=== PATIENT | female | born 1995 | race Caucasian/White ===

== ENCOUNTER 2020-05-16 16:05 | Outpatient (REF) | payer OTHER, SELFPAY | END 2020-05-16 16:06 | disposition home or self-care (01) | LOC: HO.LAB 16:05 | PROVIDERS: Visit Provider Hospitalist | DX: B34.9 Viral infection, unspecified (principal); Z20.828 Contact with and (suspected) exposure to other viral communicable diseases | CPT/HCPCS: U0003 ==

== ENCOUNTER 2020-08-23 11:08 | Outpatient (REF) | payer OTHER, SELFPAY ==
[2020-08-23 13:55] LABS: MANUAL DIFF FLAG NO
[2020-08-23 14:19] LABS: Basophils Absolute Auto 0.1 X10*3/uL (0.0-0.2); Basophils Percent Auto 0.7 % (0-2); Eosinophils Absolute Auto 0.3 X10*3/uL (0.0-0.4); Eosinophils Percent Auto 2.9 % (0-4); Hematocrit 41.4 % (37-47); Hemoglobin 13.3 g/dl (12.0-16.0); Lymphocytes Absolute Auto 2.7 X10*3/uL (1.2-4.9); Lymphocytes Percent Auto 26.5 % (20-40); Mean Corpuscular HGB Conc 32.1 g/dl (31.0-35.0); Mean Corpuscular Hemoglobin 29.4 pg (27.0-33.0); Mean Corpuscular Volume 91.4 fL (80-98); Monocytes Absolute Auto 0.7 X10*3/uL (0.1-1.2); Monocytes Percent Auto 6.4 % (2-11); Neutrophils Absolute Auto 6.4 X10*3/uL (2.0-8.3); Neutrophils Percent Auto 62.5 % (45-73); Platelet Count 387 X10*3/uL (160-400); Red Blood Count 4.53 X10*6/uL (4.20-5.50); Red Cell Distribution Width 13.8 % (11.0-16.0); White Blood Count 10.2 X10*3/uL (4.8-10.8)
[2020-08-23 14:20] LABS: Alanine Aminotransferase 24 U/L (0-31); Anion Gap 15 (12-20); Aspartate Amino Transferase 25 U/L (5-31); Blood Urea Nitrogen 7 mg/dL (9-16); Calcium 9.2 mg/dL (8.4-10.2); Carbon Dioxide 28 mmol/L (22-29); Chloride 103 mmol/L (96-108); Cholesterol 166 mg/dL; Estimated Glomerular Filt Rate > 60; Glucose Fasting 79 mg/dL (60-99); HDL Cholesterol 43 mg/dL; LDL Cholesterol Calculated 86 mg/dl; Potassium 4.5 mmol/L (3.3-5.1); Sodium 141 mmol/L (135-145); Triglycerides 189 mg/dL
[2020-08-23 14:43] LABS: TSH reflex Free T4 1.53 uIU/mL (0.32-4.0); Vitamin D 25-OH Total 25.3 ng/mL (>30)
== END 2020-08-23 11:09 | disposition home or self-care (01) ==
LOC: HO.HMGCLDS 11:08
PROVIDERS: PCP Internal Medicine; Visit Provider Internal Medicine
DX: Z00.00 Encounter for general adult medical examination without abnormal findings (principal); E55.9 Vitamin D deficiency, unspecified; E66.9 Obesity, unspecified; I10 Essential (primary) hypertension
CPT/HCPCS: 36415; 80048; 80061; 82306; 84443; 84450; 84460; 85025

== ENCOUNTER 2022-12-18 08:12 | Emergency (ER) | payer OTHER, SELFPAY ==
[2022-12-18 08:15] VITALS: BP 123/62; PULSE 85; RESP 16; TEMP 36.1; O2SAT 99; BMI 34.0
[2022-12-18 08:37] VITALS: PULSE 85; RESP 16; TEMP 36.6; O2SAT 98
--- NOTE | 2022-12-18 08:41 | PC.NURSE ---
a&ox3, vss, pt is 4 months - comes into ED d/t having diarrhea x3 days, nausea present but denies vomiting. pt rating lower abdominal pain at a 5/10 - states that the pain increases when she has a BM. Also states that she has not been able to keep anything down.
--- NOTE | 2022-12-18 08:47 | PC.NURSE ---
lower abdominal pain non-tender upon palpation, hyperactive BS noted upon auscultation, FHR = 140bpm, provider bedside doing performing ultrasound.
--- NOTE | 2022-12-18 09:01 | PC.NURSE ---
provider bedside performing ultrasound - FHR = 143bpm on ultrasound, movement present.
[2022-12-18] MEDS: Metoclopramide HCl 10 MG/2 ML VIAL IVPUSH (09:23)
[2022-12-18] MEDS: Acetaminophen 325 MG TABLET 975 MG PO (09:23)
[2022-12-18] MEDS: 0.9 % Sodium Chloride 1,000 ML 999 ML IV ×2 (09:23→10:03)
--- NOTE | 2022-12-18 09:29 | PC.NURSE ---
pt has IV fluids running, reports villalobos 5/10 in the lower abdomen. lights dimmed and pt is resting comfortably.
[2022-12-18 09:37] LABS: MANUAL DIFF FLAG NO
[2022-12-18 09:38] LABS: Basophils Percent Auto 0.3 % (0-2); Eosinophils Absolute Auto 0.2 X10*3/uL (0.0-0.4); Eosinophils Percent Auto 1.4 % (0-4); Hematocrit 37.6 % (37.0-47.0); Hemoglobin 12.6 g/dl (12.0-16.0); Imm Gran Abs Auto 0.09 X10*3/uL (0.00-0.03); Imm Gran Pct Auto 0.7 % (0.0-0.4); Lymphocytes Absolute Auto 2.7 X10*3/uL (1.2-4.9); Lymphocytes Percent Auto 20.9 % (20-40); Mean Corpuscular HGB Conc 33.5 g/dl (31.0-35.0); Mean Corpuscular Hemoglobin 29.4 pg (27.0-33.0); Mean Corpuscular Volume 87.6 fL (80.0-98.0); Mean Platelet Volume 8.9 fL (9.4-12.3); Monocytes Absolute Auto 0.8 X10*3/uL (0.1-1.2); Neutrophils Absolute Auto 9.2 x10*3/uL (2.0-8.3); Neutrophils Percent Auto 70.7 % (45-73); Platelet Count 317 X10*3/uL (160-400); Red Blood Count 4.29 X10*6/uL (4.20-5.50); Red Cell Distribution Width 13.7 % (11.0-16.0); White Blood Count 12.9 X10*3/uL (4.8-10.8)
[2022-12-18 09:51] LABS: Alanine Aminotransferase 12 U/L (0-31); Albumin Level 3.4 g/dL (3.5-5.0); Alkaline Phosphatase 56 U/L (39-117); Anion Gap 10 (12-20); Aspartate Amino Transferase 13 U/L (5-31); Bilirubin Total 0.4 mg/dL (0.0-1.0); Blood Urea Nitrogen 4 mg/dL (9-16); Calcium 9.5 mg/dL (8.4-10.2); Carbon Dioxide 27 mmol/L (22-29); Chloride 106 mmol/L (96-108); Creatinine Clr Calc Pharmacy 125.6; Estimated Glomerular Filt Rate > 60; Glucose Random 77 mg/dL (60-115); Potassium 3.5 mmol/L (3.3-5.1); Sodium 139 mmol/L (135-145); Total Protein 6.7 g/dL (6.5-8.0)
[2022-12-18 10:00] VITALS: BP 92/43; PULSE 74; RESP 16; TEMP 36.6; O2SAT 99
--- NOTE | 2022-12-18 10:46 | ED_ITS ---
HPI - General Adult General Chief complaint: Abdominal Pain Stated complaint: 16 Wks Cramping Nausea Time Seen by Provider: 12/18/22 08:40 Source: patient Mode of arrival: ambulatory Limitations: no limitations History of Present Illness HPI narrative: 27-year-old female presents with nausea, vomiting and abdominal cramping associated with diarrhea. Symptoms started 3 days ago. Same patient describes symptoms as moderate to severe. There is no clear relieving or exacerbating features. The cramping is in the lower abdominal area. Does not radiate. She denies any fevers or chills. She denies any sick contacts per her blood in vomitus has been nonbilious nonbloody PERRLA patient has never had this pain before. She denies any vaginal bleeding reveals. Related Data Previous Rx's Medication Instructions Recorded cholecalciferol (vitamin D3) 1,250 1,250 mcg PO QWEEK 90 days #13 caps 08/23/20 mcg (50,000 unit) capsule cholecalciferol (vitamin D3) 50 50 mcg PO DAILY #30 tabs 11/02/20 mcg (2,000 unit) tablet metoclopramide HCl 10 mg tablet 10 mg PO Q6H PRN nausea and 12/18/22 (Reglan) vomiting #10 tabs Allergies Allergy/AdvReac Type Severity Reaction Status Date / Time No Known Allergies Allergy Verified 12/18/22 08:20 Review of Systems Review of Systems: CONSTITUTIONAL: Denies weight loss, fever and chills. HEENT: Denies changes in vision and hearing. RESPIRATORY: Denies SOB and cough. CV: Denies palpitations no CP. GI: + abdominal pain, nausea, vomiting and diarrhea. : Denies dysuria and urinary frequency. MSK: Denies myalgia and joint pain. SKIN: Denies rash and pruritus. NEUROLOGICAL: Denies headache and syncope. PSYCHIATRIC: Denies recent changes in mood. Denies anxiety and depression. All other ROS are negative unless in HPI PMFSH Past Medical History Medical History Obesity (BMI 30.0-34.9) Vitamin D deficiency Surgical History No pertinent past surgical history Family History Family History Father No problems noted. Mother No problems noted. Sister Asthma Maternal Grandmother No problems noted. Maternal Grandfather Alzheimer's disease Maternal Aunt No problems noted. Paternal Grandfather Unknown family medical history Paternal Grandmother Unknown family medical history Sister No problems noted. Social History Social History Alcohol intake: never Smoked in Last 30 Days: No Use of substances other than those prescribed or required for medical reasons: No Advance Directives: No Advance Directives Information Provided: No Patient : Yes Physical Exam ED Vital Signs: Vital Signs - 24 hr 12/18/22 08:15 12/18/22 08:37 12/18/22 10:00 Temperature 97.0 F 97.9 F 97.8 F Pulse Rate 85 85 74 Respiratory Rate 16 16 16 Blood Pressure 123/62 92/43 L Pulse Oximetry 99 98 99 Oxygen Delivery Method Room Air Room Air BMI result Body Mass Index 34.0 GEN: Well developed, no acute distress, alert, oriented HEENT: Normocephalic, atraumatic, normal external ears, nose appears normal, no oropharyngeal edema or exudates Eyes: Normal to appearance Neck: Supple, no lymphadenopathy Respiratory: Talks in complete sentences, no respiratory distress, clear to au scultation bilaterally Cardiovascular: Regular rate and rhythm, no murmurs rubs or gallops Abdomen: Soft, nontender, nondistended, no guarding, no rebound Back: No CVA tenderness Extremities: No clubbing cyanosis or edema Neurologic: No focal neurologic deficits, cranial nerves 2-12 intact, strength is 5/5 bilaterally Skin: No rash Course Course Course Narrative: Patient's workup is complete. She is feeling much better. Her belly is remains benign. She has an IUP with good heart rate. She can follow-up with her OBGYN. We talked about treatment for diarrhea. She will take [id number]-[id number] remedies such as bananas and rice. Reevaluation(s) Reevaluation #1: Patient's abdomen is benign. There is no indication for emergent imaging at this time. Patient is feeling symptomatically improved. Bedside ultrasound confirmed a positive IUP, good movements and heart rate of approximately 143 beats per minute. Medications Administered Generic Name Dose Route Start Last Admin Trade Name Freq PRN Reason Stop Dose Admin Sodium Chloride 1,000 mls @ 999 mls/hr 12/18/22 09:15 12/18/22 10:03 Ns IV 12/18/22 11:15 999 mls/hr .Q1H1M DIAMOND Administration Discontinued Medications Generic Name Dose Route Start Last Admin Trade Name Freq PRN Reason Stop Dose Admin Acetaminophen 975 mg 12/18/22 09:05 12/18/22 09:23 Acetaminophen 325 Mg Tablet PO 12/18/22 09:06 975 mg ONCE ONE Administration Metoclopramide HCl 10 mg 12/18/22 09:05 12/18/22 09:23 Metoclopramide Hcl 10 Mg/2 Ml Vial IVPUSH 12/18/22 09:06 10 mg ONCE ONE Administration Medical Decision Making Medical Decision Making [facility] Narrative: 27-year-old female presents with nausea, vomiting, abdominal pain and diarrhea. Her abdominal exam is benign. Most likely of the differential diagnoses include gastroenteritis, IBD, IBS, low likelihood of acute appendicitis, cholecystitis, pancreatitis. Plan will be to obtain routine laboratory analysis. Will perform a bedside ultrasound to confirm an IUP with good movements and heart rate. She denies any vaginal bleeding or discharge. This does not warrant a significant obstetric workup unless there are no heart beats evaluated. Differential Diagnosis Differential Diagnoses: The differential diagnosis associated with the presentation includes (See above) Admission/Observation Consideration of admission/observation: Escalation of care including admission/observation considered Lab Data [facility] Lab Attestation statement: I reviewed the patient's lab results. 12/18/22 09:18 12/18/22 09:18 Labs: Lab Results 12/18/22 12/18/22 Range/Units 09:18 09:18 WBC 12.9 H (4.8-10.8) X10*3/uL RBC 4.29 (4.20-5.50) X10*6/uL Hgb 12.6 (12.0-16.0) g/dl Hct 37.6 (37.0-47.0) % MCV 87.6 (80.0-98.0) fL MCH 29.4 (27.0-33.0) pg MCHC 33.5 (31.0-35.0) g/dl RDW 13.7 (11.0-16.0) % Plt Count 317 (160-400) X10*3/uL MPV 8.9 L (9.4-12.3) fL Immature Gran % (Auto) 0.7 H (0.0-0.4) % Neut % (Auto) 70.7 (45-73) % Lymph % (Auto) 20.9 (20-40) % Hill % (Auto) 6.0 (2-11) % Eos % (Auto) 1.4 (0-4) % Baso % (Auto) 0.3 (0-2) % Lymph # (Auto) 2.7 (1.2-4.9) X10*3/uL Hill # (Auto) 0.8 (0.1-1.2) X10*3/uL Eos # (Auto) 0.2 (0.0-0.4) X10*3/uL Baso # (Auto) 0.0 (0.0-0.2) X10*3/uL Abs Immat Gran (auto) 0.09 H (0.00-0.03) X10*3/uL Absolute Neuts (auto) 9.2 H (2.0-8.3) x10*3/uL Absolute Nucleated RBC 0.000 (0.0-0.012) X10*3/uL Nucleated RBC % (auto) 0.0 (0.0-0.2) /100WBC Sodium 139 (135-145) mmol/L Potassium 3.5 D (3.3-5.1) mmol/L Chloride 106 (96-108) mmol/L Carbon Dioxide 27 (22-29) mmol/L Anion Gap 10 L (12-20) BUN 4 L (9-16) mg/dL Creatinine 0.61 (0.5-1.4) mg/dL Estim Creat Clear Calc 125.6 Estimated GFR > 60 Random Glucose 77 (60-115) mg/dL Calcium 9.5 (8.4-10.2) mg/dL Total Bilirubin 0.4 (0.0-1.0) mg/dL AST 13 (5-31) U/L ALT 12 (0-31) U/L Alkaline Phosphatase 56 (39-117) U/L Total Protein 6.7 (6.5-8.0) g/dL Albumin 3.4 L (3.5-5.0) g/dL Radiology Impression Discussion of test interpretation with radiology: I have reviewed the radiologist's reading. Tests considered The following testing was considered but not selected: Official ultrasound showed Prescription Management I considered prescription management with: Pain Medication and Antibiotic Chronic Conditions Patient?s care impacted by: Other () Discharge Plan Discharge Clinical Impression: Abdominal pain, Nausea vomiting and diarrhea Patient Disposition: Home, Self-Care Instructions: Acute Abdominal Pain (ED) Prescriptions: New metoclopramide HCl [Reglan] 10 mg tablet 10 mg PO Q6H PRN (Reason: nausea and vomiting) Qty: 10 0RF No Action cholecalciferol (vitamin D3) 1,250 mcg (50,000 unit) capsule 1,250 mcg PO QWEEK 90 Days Qty: 13 0RF cholecalciferol (vitamin D3) 50 mcg (2,000 unit) tablet 50 mcg PO DAILY Qty: 30 3RF Referrals: Linda Berger MD [Primary Care Provider] - Print Language: French
[2022-12-18 11:04] LABS: Appearance Urine Clear; Color Urine Yellow; Glucose Urine UA Negative (Negative); Leukocyte Esterase Urine Trace (Negative); Nitrite Urine Negative (Negative); Specific Gravity - Urine <= 1.005 (1.005-1.025); UMIC TRIGGER UACC YES; Urine Blood Negative (Negative); Urine Ketones Negative (Negative); Urine Protein Negative (Neg-Trace)
[2022-12-18 11:06] LABS: Bacteria Urine Trace (None Seen); Hyaline Casts Urine 0-2 /LPF (0-2); RBC Urine 0-2 /HPF (0-2); WBC Urine 0-5 /HPF (0-5)
== END 2022-12-18 11:39 | disposition home or self-care (01) ==
PROVIDERS: Emergency Provider Emergency Medicine; PCP Internal Medicine
DX: O21.9 Vomiting of pregnancy, unspecified (principal); O26.892 Other specified pregnancy related conditions, second trimester; R19.7 Diarrhea, unspecified; R10.30 Lower abdominal pain, unspecified; Z3A.16 16 weeks gestation of pregnancy; Z79.899 Other long term (current) drug therapy
CPT/HCPCS: 36415; 80053; 81001; 85025; 96361; 96374; 99284; 99285; J2765

== ENCOUNTER 2023-02-07 11:45 | Outpatient (AMB) | payer OTHER, SELFPAY ==
[2023-02-07 11:52] VITALS: BP 90/60; PULSE 86; O2SAT 99; BMI 34.3
--- NOTE | 2023-02-07 11:52 | MHC.PC.OV ---
Vital Signs 02/07/23 11:52 Height 4 ft 11 in Weight 170 lb BMI 34.3 BP 90/60 Blood Pressure Location Rt brachial Position Sitting Pulse 86 Pulse Source Pulse Oximeter Pulse Oximetry (%) 99 Oxygen Delivery Method Room Air Intake Visit Reasons: 5M , Low BP, a critical msg was placed Intake Note: pt is here for concern of low BP, 5 months gestational Clinical Quality Manager Required: No Allergies No Known Allergies Allergy (Verified 02/07/23 11:53) Tobacco use date assessed: 02/07/23 Dental Screening Dental Screen Date: 02/07/23 Did you have a dental visit in the last 12 months?: No Did you have a dental problem in the last 6 months where you did not have access to dental care?: No Was dental information given to patient?: Patient has dentist HPI 5M , Low BP, a critical msg was placed HPI Details 27-year-old lady here today complaining of intermittent episodes of dizziness, worse with sudden changes in position, accompanied by stop palpitation, no history of syncope, which has been progressively getting more frequent over the last 2-3 weeks. Patient is currently 5 months and is being seen at [facility], and was advised to follow-up here. Reviewed labs drawn last November 2022 which did not show any anemia, normal electrolytes, mildly low albumin, and low vitamin-D level. She is currently taking vitamins. Started work at [employer] last December but had to quit as she was getting very lightheaded at work. Denies headache, no chest pain, no nausea, no abdominal pain, no abnormal vaginal discharge, no bleeding in stool, no abdominal pain, but does get short of breath on moderate exertion. [facility] Medical History Hypotension Obesity (BMI 30.0-34.9) Vitamin D deficiency Surgical History No pertinent past surgical history Family History Father No problems noted. Mother No problems noted. Sister Asthma Maternal Grandmother No problems noted. Maternal Grandfather Alzheimer's disease Maternal Aunt No problems noted. Paternal Grandfather Unknown family medical history Paternal Grandmother Unknown family medical history Sister No problems noted. Social History Housing: Apartment Alcohol intake: never Patient Tobacco Use Status: Never used Tobacco e-Cigarette/Vaping Use: Never Used Current occupational status: unemployed Cognitive needs: No Hearing needs: No Vision needs: No Questionnaire PHQ-9 Over the last 2 weeks, how often have you been bothered by any of the following problems? 1. Little interest or pleasure in doing things: not at all 2. Feeling down, depressed, or hopeless: not at all 3. Trouble falling or staying asleep, or sleeping too much: not at all 4. Feeling tired or having little energy: not at all 5. Poor appetite or overeating: not at all 6. Feeling bad about yourself - or that you are a failure or have let yourself or your family down: not at all 7. Trouble concentrating on things, such as reading the newspaper or watching television: not at all 8. Moving or speaking so slowly that other people could have noticed. Or the opposite - being so fidgety or restless that you have been moving around a lot more than usual: not at all 9. Thoughts that you would be better off or of hurting yourself in some way: not at all Total score: 0 Depression Screening Interpretation: Negative 15437 - PHQ-9 Billing: Yes Source: Developed by Drs. Pietro Rawls, Magaly Logan, Danny Claudio and colleagues, with an educational milan from [employer]. Thrive Questionnaire Date Thrive assessed: 02/07/23 I am a: Patient What is your living situation today?: I have a steady place to live Within the past 12 months, did the food you bought not last and you didn't have the money to get more?: Never true Within the past 12 months, did you worry whether your food would run out before you got money to buy more?: Never true Do you have trouble paying for medicines?: No Do you have trouble getting transportation to medical appointments?: No Do you have trouble paying your heating and electricity bill?: No Do you have trouble taking care of your child, family member or friend?: No Do you have trouble with day-to-day activities such as bathing, preparing meals, shopping, managing finances, etc.?: No Are you currently unemployed and looking for a job?: No Are you interested in more education?: No Please select the resources that you would like help with: None Currently or been in a relationship where the following occur: no concerns reported DARCIE-7 AMB Questionnaire DARCIE-7 Date DARCIE - 7 assessed: 02/07/23 Feeling nervous, anxious, or on edge: 0 = Not at all Not being able to stop or control worryin = Not at all Worrying too much about different things: 0 = Not at all Trouble relaxin = Not at all Being so restless that it is hard to sit still: 0 = Not at all Becoming easily annoyed or irritable: 0 = Not at all Feeling afraid as if something awful might happen: 0 = Not at all Total DARCIE-7 score (0-4 normal; 5-9 mild; 10-14 moderate; 15-21 severe): 0 Source: Developed by Drs. Pietro Rawls, Magaly Logan, Danny Claudio and colleagues, with an educational milan from [employer]. DARCIE-7 Assessment Billing DARCIE-7 Assessment Tool: DARCIE-7 Assessment 04884 Review of Systems Const Denies body aches, Denies fever(s), Denies headache(s) and Denies weakness Eyes Denies change in vision, Denies eye discharge and Denies itchy eyes ENT Denies headache(s), Denies nasal congestion, Denies nasal discharge and Denies sore throat Card Denies chest pain Resp Denies chest congestion, Denies cough and Denies wheezing GI Denies abdominal pain, Denies change in bowel habits and Denies heartburn Denies urinary frequency, Denies dysuria and Denies urinary urgency Musc Denies back pain, Denies myalgias, Denies arthralgias, Denies joint swelling and Denies limited range of motion Skin/Breast Denies lesions and Denies rash Neuro Denies behavioral changes, Denies headache(s) and Denies weakness Psych Denies anxiety, Denies behavioral changes and Denies depression Endo Denies polydipsia and Denies polyuria Ryan/Lymph Denies easy bruising Aller/Immun Denies itchy eyes, Denies seasonal rhinorrhea and Denies wheezing Physical exam (Primary Care) Vital Signs: Last Vital Signs Pulse 86 02/07/23 11:52 BP 90/60 02/07/23 11:52 Pulse Ox 99 02/07/23 11:52 Oxygen Delivery Method Room Air 02/07/23 11:52 BMI result Body Mass Index 34.3 Tobacco/Smoking Status: Tobacco use Status Tobacco use date assessed 02/07/23 02/07/23 11:54 Patient Tobacco Use Status Never used Tobacco 02/07/23 11:54 e-Cigarette/Vaping Use Never Used 02/07/23 12:10 PHQ-9: PHQ-9 Score PHQ-9: Total score 0 02/07/23 12:16 Depression Screening Interpretation: Negative Thrive Assessment: Date of Thrive Assessment Date Thrive assessed 02/07/23 02/07/23 12:16 Currently or been in a relationship where the following occur: no concerns reported Const Other: Alert oriented x3, no acute cardiorespiratory distress noted, ambulatory normal gait Orientation/consciousness: patient oriented x3 HENMT Head: Yes normocephalic Ears: hearing grossly normal bilaterally and external ears normal General nose exam: Normal external nose present and No nasal discharge present Face and sinus: Yes sinuses nontender and Yes face symmetric Mouth: Normal oral and palatal mucosa present, oropharynx normal and moist mucous membranes Eyes General: appearance normal, both eyes and all related structures Neck Other: Nonpalpable thyroid gland Neck: Yes full ROM, Yes no lymphadenopathy and Yes supple Resp Effort & Inspection: normal respiratory effort and able to speak in complete sentences Auscultation: clear to auscultation bilaterally Cardio Other: S1-S2 present regular rate and rhythm GI Inspection: Yes normal to inspection Palpation (GI): Soft to palpation, nontender and no guarding Auscultation: normal bowel sounds Skin General skin exam: no rashes or lesions noted Neuro General: patient oriented x3, gait normal, moves all extremities, Normal light touch and pain sensation, no focal motor deficits and CN's II-XI intact bilaterally Extrem General: Yes full ROM, Yes no joint enlargement, Yes no clubbing, cyanosis or edema, Yes no calf tenderness and Yes normal gait Psych Appearance: grossly normal and well kempt Mental Status: mental status grossly normal Speech and movement: Normal speech and movement present Affect: normal affect Attitude: cooperative Assessment and Plan Assessment & Plan (1) Vitamin D deficiency: Code(s): E55.9 - Vitamin D deficiency, unspecified Plan: Will check vitamin-D level again (2) Near syncope: Code(s): R55 - Syncope and collapse (3) Generalized weakness: Code(s): R53.1 - Weakness (4) Hypotension: Code(s): I95.9 - Hypotension, unspecified Plan Ordered CBC with iron profile, compressive metabolic panel, vitamin-D level. Continue taking vitamins, advised to stay well-hydrated, rest as much as possible. Continue follow-up with OBGYN. Requested copies of last office visit from her OB Orders: Orders IRON PROFILE Today E55.9 - Vitamin D deficiency, unspecified, E66.9 - Obesity, unspecified, I95.9 - Hypotension, unspecified, R53.1 - Weakness, R55 - Syncope and collapse Complete Blood Count Auto Diff Today E55.9 - Vitamin D deficiency, unspecified, E66.9 - Obesity, unspecified, I95.9 - Hypotension, unspecified, R53.1 - Weakness, R55 - Syncope and collapse Vitamin D 25-OH Total Today E55.9 - Vitamin D deficiency, unspecified, E66.9 - Obesity, unspecified, I95.9 - Hypotension, unspecified, R53.1 - Weakness, R55 - Syncope and collapse Comprehensive Met. Panel Today E55.9 - Vitamin D deficiency, unspecified, E66.9 - Obesity, unspecified, I95.9 - Hypotension, unspecified Coding Level of Care Code Est Pt Level 3 (35413) Diagnoses Vitamin D deficiency E55.9 Near syncope R55 Generalized weakness R53.1 Hypotension I95.9 Additional Codes DARCIE-7 Assessment Billing - DARCIE-7 Assessment Tool: DARCIE-7 Assessment 36176 ([id number])
== END 2023-02-07 14:10 | disposition home or self-care (01) ==
PROVIDERS: PCP Internal Medicine; Visit Provider Internal Medicine
DX: E55.9 Vitamin D deficiency, unspecified (principal); R55 Syncope and collapse; R53.1 Weakness; I95.9 Hypotension, unspecified
CPT/HCPCS: 99213

== ENCOUNTER 2023-02-07 12:48 | Outpatient (REF) | payer OTHER, SELFPAY ==
[2023-02-07 16:09] LABS: MANUAL DIFF FLAG NO
[2023-02-07 16:18] LABS: Basophils Absolute Auto 0.1 X10*3/uL (0.0-0.2); Basophils Percent Auto 0.4 % (0-2); Eosinophils Absolute Auto 0.2 X10*3/uL (0.0-0.4); Eosinophils Percent Auto 1.6 % (0-4); Hematocrit 37.7 % (37.0-47.0); Hemoglobin 12.2 g/dl (12.0-16.0); Imm Gran Abs Auto 0.17 X10*3/uL (0.00-0.03); Imm Gran Pct Auto 1.2 % (0.0-0.4); Lymphocytes Absolute Auto 2.9 X10*3/uL (1.2-4.9); Lymphocytes Percent Auto 20.9 % (20-40); Mean Corpuscular HGB Conc 32.4 g/dl (31.0-35.0); Mean Corpuscular Hemoglobin 29.3 pg (27.0-33.0); Mean Corpuscular Volume 90.4 fL (80.0-98.0); Mean Platelet Volume 9.3 fL (9.4-12.3); Monocytes Absolute Auto 0.8 X10*3/uL (0.1-1.2); Monocytes Percent Auto 5.9 % (2-11); Neutrophils Absolute Auto 9.8 x10*3/uL (2.0-8.3); Platelet Count 359 X10*3/uL (160-400); Red Blood Count 4.17 X10*6/uL (4.20-5.50); Red Cell Distribution Width 14.3 % (11.0-16.0)
[2023-02-07 16:41] LABS: Alanine Aminotransferase 9 U/L (0-31); Albumin Level 3.5 g/dL (3.5-5.0); Alkaline Phosphatase 75 U/L (39-117); Anion Gap 10 (12-20); Aspartate Amino Transferase 14 U/L (5-31); Bilirubin Total 0.1 mg/dL (0.0-1.0); Blood Urea Nitrogen 4 mg/dL (9-16); Calcium 9.4 mg/dL (8.4-10.2); Carbon Dioxide 25 mmol/L (22-29); Chloride 107 mmol/L (96-108); Estimated Glomerular Filt Rate > 60; Glucose Random 64 mg/dL (60-115); Iron 64 mcg/dL (30-160); Percent Iron Saturation 21 % (15-50); Sodium 138 mmol/L (135-145); Total Iron Binding Capacity 304 mcg/dL (228-428); Total Protein 6.7 g/dL (6.5-8.0); Unsaturated Iron Binding 240 ug/dL
[2023-02-07 16:48] LABS: Vitamin D 25-OH Total 65.5 ng/mL (>30)
== END 2023-02-07 12:49 | disposition home or self-care (01) ==
LOC: HO.HMGCLDS 12:48
PROVIDERS: PCP Internal Medicine; Visit Provider Internal Medicine
DX: E55.9 Vitamin D deficiency, unspecified (principal); E66.9 Obesity, unspecified; R55 Syncope and collapse; R53.1 Weakness; I95.9 Hypotension, unspecified
CPT/HCPCS: 36415; 80053; 82306; 83540; 85025

== ENCOUNTER 2024-05-12 08:36 | Outpatient (AMB) | payer OTHER, SELFPAY ==
--- NOTE | 2024-05-12 08:58 | A.OFFPC_ITS ---
Vital Signs 05/12/24 09:16 Height 4 ft 11 in Weight 187 lb BMI 37.8 BP 102/80 Blood Pressure Location Lt brachial Position Sitting Pulse 87 Pulse Source Pulse Oximeter Pulse Oximetry (%) 98 Oxygen Delivery Method Room Air Intake Visit Reasons: re-est care/ PE Intake Note: Pt is here today for her PE Allergies No Known Allergies Allergy (Verified 05/12/24 08:59) Medication List - Last Reconciled 05/12/24 by Linda Berger MD PNV cmb#95-ferrous fumarate-FA 28 mg iron- 800 mcg () 1 tab PO DAILY Tobacco use date assessed: 05/12/24 Dental Screening Dental Screen Date: 05/12/24 Did you have a dental visit in the last 12 months?: No Did you have a dental problem in the last 6 months where you did not have access to dental care?: No Was dental information given to patient?: Patient declined HPI re-est care/ PE HPI Details -28-year-old female presenting for a phy sical exam , - status: Recently delivered her third child. Noted difficulty in losing weight . has gained weight during successive pregnancies. - Family planning: Discussing tubal umberto esdras for control with her OB Not currently using any contraceptive methods. History of vaginal deliveries for all pregnancies, no complications . Currently exclusively - Elevated cholesterol on past labs done in 2020. Trying to diet , and stopped drinking soda , switched to seltzer water - Obesity: Pre- weight around 1 60 lbs, with an increase noted during . - UTD with TDap and flu vaccine , does n ot want to get COvid Vaccine. - UTD with cervical cancer screening , d one 10/18/23 with benign findings done at [facility] Medical History Obesity (BMI 30.0-34.9) Vitamin D deficiency Surgical History No pertinent past surgical history Family History Father No problems noted. Mother No problems noted. Sister Asthma Maternal Grandmother No problems noted. Maternal Grandfather Alzheimer's disease Maternal Aunt No problems noted. Paternal Grandfather Unknown family medical history Paternal Grandmother Unknown family medical history Sister No problems noted. Social History Housing: Apartment Alcohol intake: never Patient Tobacco Use Status: Never used Tobacco e-Cigarette/Vaping Use: Never Used Current occupational status: unemployed Cognitive needs: No Hearing needs: No Vision needs: No Female Reproductive History Menstrual Date of last pap smear: 10/18/23 ([facility] at [facility]) Questionnaire PHQ-9 Over the last 2 weeks, how often have you been bothered by any of the following problems? 1. Little interest or pleasure in doing things: not at all 2. Feeling down, depressed, or hopeless: not at all 3. Trouble falling or staying asleep, or sleeping too much: not at all 4. Feeling tired or having little energy: not at all 5. Poor appetite or overeating: not at all 6. Feeling bad about yourself - or that you are a failure or have let yourself or your family down: not at all 7. Trouble concentrating on things, such as reading the newspaper or watching television: not at all 8. Moving or speaking so slowly that other people could have noticed. Or the opposite - being so fidgety or restless that you have been moving around a lot more than usual: not at all 9. Thoughts that you would be better off or of hurting yourself in some way: not at all Total score: 0 Depression Screening Interpretation: Negative Depression Screening Done: Yes 14413 - PHQ-9 Billing: Yes Source: Developed by Drs. Pietro Rawls, Magaly Logan, Danny Claudio and colleagues, with an educational milan from [employer]. Thrive Questionnaire Date Thrive assessed: 05/12/24 I am a: Patient What is your living situation today?: I have a steady place to live Within the past 12 months, did the food you bought not last and you didn't have the money to get more?: Never true Within the past 12 months, did you worry whether your food would run out before you got money to buy more?: Never true Do you have trouble paying for medicines?: No Do you have trouble getting transportation to medical appointments?: No Do you have trouble paying your heating and electricity bill?: No Do you have trouble taking care of your child, family member or friend?: No Do you have trouble with day-to-day activities such as bathing, preparing meals, shopping, managing finances, etc.?: No Are you currently unemployed and looking for a job?: No Are you interested in more education?: No Please select the resources that you would like help with: None Currently or been in a relationship where the following occur: No concerns re ported THRIVE Score: 0 AUDIT C Alcohol Use Questionnaire (AUDIT-C) 1. How often do you have a drink containing alcohol?: Never Total Score: 0 DARCIE-7 AMB Questionnaire DARCIE-7 Date DARCIE - 7 assessed: 05/12/24 Feeling nervous, anxious, or on edge: 0 = Not at all Not being able to stop or control worryin = Not at all Worrying too much about different things: 0 = Not at all Trouble relaxin = Not at all Being so restless that it is hard to sit still: 0 = Not at all Becoming easily annoyed or irritable: 0 = Not at all Feeling afraid as if something awful might happen: 0 = Not at all Total DARCIE-7 score (0-4 normal; 5-9 mild; 10-14 moderate; 15-21 severe): 0 Source: Developed by Drs. Pietro Rawls, Magaly Logan, Danny Claudio and colleagues, with an educational milan from [employer]. Review of Systems Const Denies body aches, Denies fever(s), Denies headache(s), Denies weakness and Reports weight gain Eyes Denies change in vision, Denies eye discharge and Denies itchy eyes ENT Denies headache(s), Denies nasal congestion, Denies nasal discharge and Denies sore throat Card Denies chest pain Resp Denies chest congestion, Denies cough and Denies wheezing GI Denies abdominal pain, Denies change in bowel habits and Denies heartburn Denies urinary frequency, Denies dysuria and Denies urinary urgency Musc Denies back pain, Denies myalgias, Denies arthralgias, Denies joint swelling and Denies limited range of motion Skin/Breast Denies lesions and Denies rash Neuro Denies behavioral changes, Denies headache(s) and Denies weakness Psych Denies anxiety, Denies behavioral changes and Denies depression Endo Denies polydipsia and Denies polyuria Ryan/Lymph Denies easy bruising Aller/Immun Denies itchy eyes, Denies seasonal rhinorrhea and Denies wheezing Physical exam (Primary Care) Vital Signs: Last Vital Signs Pulse 87 05/12/24 09:16 BP 102/80 05/12/24 09:16 Pulse Ox 98 05/12/24 09:16 Oxygen Delivery Method Room Air 05/12/24 09:16 BMI result Body Mass Index 37.8 Tobacco/Smoking Status: Tobacco use Status Tobacco use date assessed 05/12/24 05/12/24 09:00 Patient Tobacco Use Status Never used Tobacco 05/12/24 09:00 e-Cigarette/Vaping Use Never Used 05/12/24 09:00 PHQ-9: PHQ-9 Score PHQ-9: Total score 0 05/12/24 09:21 Depression Screening Interpretation: Negative Thrive Assessment: Date of Thrive Assessment Date Thrive assessed 05/12/24 05/12/24 09:00 Currently or been in a relationship where the following occur: No concerns reported Advance Care Planning discussion: Completed/Scanned Date of discussion: 05/12/24 Who was present: patient Forms completed: Health Care Proxy Time spent: 16-45 minutes Actual minutes spent: 3 Const Other: Alert oriented x3, no acute cardiorespiratory distress noted, ambulatory normal gait Orientation/consciousness: patient oriented x3 HENDE Head: Yes normocephalic Ears: hearing grossly normal bilaterally and external ears normal General nose exam: Normal external nose present and No nasal discharge present Face and sinus: Yes face symmetric Mouth: Normal oral and palatal mucosa present, oropharynx normal and moist mucous membranes Eyes General: appearance normal, both eyes and all related structures Neck Other: Nonpalpable thyroid gland Neck: Yes full ROM, Yes no lymphadenopathy and Yes supple Chest Chest palpation & inspection: normal inspection of the chest and normal palpation of entire chest wall Breast/axilla inspection: normal inspection of the breasts Breast/axilla palpation: normal palpation of the breasts Resp Effort & Inspection: normal respiratory effort and able to speak in complete sentences Auscultation: clear to auscultation bilaterally Cardio Other: S1-S2 present regular rate and rhythm GI Inspection: Yes Abdominal panniculus present, Yes obesity and Yes other (panniculus present, + striae) Palpation (GI): Soft to palpation, nontender and no guarding Auscultation: normal bowel sounds General: Yes deferred (sees OB at [facility] , utd w/ pap) Skin Other: + striae on abdomen General skin exam: no rashes or lesions noted Neuro General: patient oriented x3, gait normal, moves all extremities, Normal light touch and pain sensation, no focal motor deficits and CN's II-XI intact bilaterally Extrem General: Yes full ROM, Yes no joint enlargement, Yes no clubbing, cyanosis or edema, Yes no calf tenderness and Yes normal gait Psych Appearance: grossly normal and well kempt Mental Status: mental status grossly normal Speech and movement: Normal speech and movement present Affect: normal affect Attitude: cooperative Coding Level of Care Code Est Pt Prev Care 18-39y(80041) Diagnoses Annual visit for general adult medical examination with abnormal findings Z00.01 Obesity (BMI 30.0-34.9) E66.9 Advanced directives, counseling/discussion Z71.89 Additional Codes PHQ-9 - 78777 - PHQ-9 Billing: Yes ([id number]) Vital Signs *Quality* - Advance Care Planning discussion: Completed/Scanned ([id number]) Vital Signs *Quality* - Time spent: 16-45 minutes ([id number]) Assessment & Plan Assessment & Plan (1) Annual visit for general adult medical examination with abnormal findings: Code(s): Z00.01 - Encounter for general adult medical examination with abnormal findings (2) Obesity (BMI 30.0-34.9): Code(s): E66.9 - Obesity, unspecified Category: Medical (3) Advanced directives, counseling/discussion: Code(s): Z71.89 - Other specified counseling Plan: Initiated the conversation about Advanced Directives. Advanced Directives help patients prepare for current and future decisions about their medical treatment and place of care. Discussed with patient that it is a process where a patients current condition and prognosis are reviewed, their wishes for information regarding their illness are elicited, and likely medical dilemmas are presented and options discussed. Health Care proxy form completed. The form can be amended as needed, reviewed yearly and make changes as needed Plan - Blood work to evaluate liver function, electrolytes, and vitamin D. - Discussion of tubal ligation as a permanent control option at the next follow-up. - Encouraged continuation of prenatals and vitamin D based on blood results. - Recommendations for lifestyle changes, including weight management and dietary modifications. - Consideration of future cholesterol screening to monitor lipid levels. - Regular exercise advised for weight reduction and cardiovascular health. Patient was informed and verbally consented to the use of an ambient scribe for clinic note documentation during this visit.
[2024-05-12 09:16] VITALS: BP 102/80; PULSE 87; O2SAT 98; BMI 37.8
== END 2024-05-12 09:59 | disposition home or self-care (01) ==
PROVIDERS: PCP Internal Medicine; Visit Provider Internal Medicine
DX: Z00.00 Encounter for general adult medical examination without abnormal findings (principal); E66.9 Obesity, unspecified; Z71.89 Other specified counseling; Z68.37 Body mass index [BMI] 37.0-37.9, adult

== ENCOUNTER → 2024-05-12 08:36 | Outpatient (BNVA) | payer OTHER, SELFPAY | PROVIDERS: PCP Internal Medicine; Visit Provider Internal Medicine | DX: Z00.01 Encounter for general adult medical examination with abnormal findings (principal); E66.9 Obesity, unspecified; Z68.37 Body mass index [BMI] 37.0-37.9, adult; Z71.89 Other specified counseling | CPT/HCPCS: 96127; 99395 ==

== ENCOUNTER 2024-07-18 05:12 | Emergency (ER) | payer OTHER, SELFPAY ==
[2024-07-18 05:18] VITALS: BP 141/63; PULSE 78; RESP 19; TEMP 36.2; O2SAT 97; BMI 35.5
[2024-07-18 05:39] LABS: MANUAL DIFF FLAG NO
--- NOTE | 2024-07-18 05:45 | ECG_ITS ---
Test Reason : abd pain Blood Pressure : */* mmHG Vent. Rate : 62 BPM Atrial Rate : 62 BPM P-R Int : 148 ms QRS Dur : 80 ms QT Int : 386 ms P-R-T Axes : 13 25 7 degrees QTcB Int : 391 ms Normal sinus rhythm Low voltage QRS Borderline ECG No previous ECGs available Referred By: Nelly Borja Electronically Signed By: MARS SANTIAGO
--- NOTE | 2024-07-18 05:45 | ED.ABDPAIN ---
HPI - Abdominal Pain General Chief Complaint: Abdominal Pain Stated Complaint: stomach pain Time Seen by Provider: 07/18/24 05:40 Source: patient Mode of arrival: ambulatory Limitations: no limitations History of Present Illness ED Provider: Dr. Nelly Borja HPI narrative: Patient comes to the emergency room complaining of 3 hours of left-sided abdominal pain, burning sensation radiating towards the chest. Patient complaining of couple episodes of vomiting. Patient denies any chest pain or shortness of breath, denies diarrhea, denies any UTI symptoms. Related Data Home Medications ?Medication ?Instructions ?Recorded ?Confirmed vit no.95-ferrous 1 tab PO DAILY 02/07/23 fumarate 28 mg-folic acid 800 mcg tablet () Previous Rx's ?Medication ?Instructions ?Recorded ondansetron 4 mg disintegrating 4 mg PO Q6H PRN nausea and 07/18/24 tablet vomiting #14 tabs Allergies Allergy/AdvReac Type Severity Reaction Status Date / Time No Known Allergies Allergy Verified 07/18/24 05:18 Review of Systems Review of Systems Constitutional : No Weight loss, No Fever, No Chills, No Night Sweats, No Fatigue, No Malaise ENT/Mouth : No Hearing loss, No Ear Pain, No Nasal Congestion, No Sinus Pain, No Hoarseness, No sore throat, No Rhinorrhea, No Swallowing Difficulty Eyes: No Eye Pain, No Swelling, No Redness, No Foreign Body, No Discharge, No Vision Changes Cardiovascular : No Chest Pain, No SOB, No Dyspnea on Exertion, No Orthopnea, No Edema, No Palpitations Respiratory : No Cough, No Sputum, No Wheezing, No Smoke Exposure, No Dyspnea Gastrointestinal : No Nausea, patient report Vomiting, No Diarrhea, No Constipation, complaining of right upper quadrant pain. Genitourinary : no irregular bleeding, No Dysuria, No Urinary Frequency, No Hematuria, No Urinary Incontinence, No Urgency, No Flank Pain, No Urinary Flow Changes, No Hesitancy Musculoskeletal : No joint pain, No Myalgias, No Joint Swelling Skin : No Skin Lesions, No rash Neuro : No Weakness, No Numbness, No Paresthesias, No Loss of Consciousness, No Dizziness, No Headache Psych : No Anxiety/Panic, No Depression, No SI/HI/AH/VH, No Social Issues, Heme/Lymph: No Bruising, No Bleeding,No Lymphadenopathy Endocrine : No Polyuria, No Polydipsia, No Temperature Intolerance [facility] Past Medical History Medical History Obesity (BMI 30.0-34.9) Vitamin D deficiency Surgical History No pertinent past surgical history Family History Family History Father No problems noted. Mother No problems noted. Sister Asthma Maternal Grandmother No problems noted. Maternal Grandfather Alzheimer's disease Maternal Aunt No problems noted. Paternal Grandfather Unknown family medical history Paternal Grandmother Unknown family medical history Sister No problems noted. Social History Social History Housing: Apartment Alcohol intake: never Patient Tobacco Use Status: Never used Tobacco Smoked in Last 30 Days: No e-Cigarette/Vaping Use: Never Used Use of substances other than those prescribed or required for medical reasons: No Advance Directives: No Do you have a plan to hurt others: No Plan Patient : No Current occupational status: unemployed Cognitive needs: No Hearing needs: No Vision needs: No Physical Exam ED Vital Signs: Vital Signs - 24 hr 07/18/24 05:18 07/18/24 06:12 Temperature 97.1 F Pulse Rate 78 72 Respiratory Rate 19 17 Blood Pressure 141/63 H 140/84 H Pulse Oximetry 97 97 Oxygen Delivery Method Room Air Room Air BMI result Body Mass Index 35.5 Const Other: Appearance: Alert. Oriented X3. No acute distress. Well-appearing Eyes: Pupils equal, round and reactive to light. ENT: Pharynx normal. Neck: Normal inspection. Neck supple. No lymph nodes noted. No crepitus CVS: Normal heart rate and rhythm. Pulses normal. Normal S1 and S2 Respiratory: No respiratory distress. Breath sounds normal. No Wheezing. No rales Abdomen: Soft and nontender. No rigidity. No distention. Skin: Skin warm and dry. Normal skin color. Normal skin turgor. Extremities: No lower extremity edema. No Lacerations. No Rash Neuro: Oriented X 3. No motor deficit. No sensory deficit. Moving all extremities. No slurred speech. CN 2 through 12 grossly intact Psych: calm, cooperative, normal affect Course Course Course Narrative: Patient receiving IV fluids, IV Zofran. P.o. famotidine, lidocaine and Maalox. Medical Decision Making Medical Decision Making [facility] Narrative: Patient is starting to feel better. I discussed with the patient her labs. Patient's white blood cell count 11.7, chronic leukocytosis, no significant abnormality in patient's chemistry, lipase normal, hCG negative, urinalysis negative serology positive for RSV Patient's physical exam especially abdomen is reassuring. No further imaging indicated at this time. Patient states that she has kids at home with cough, and 2 weeks ago 1 of them had RSV Patient feel much better to be discharged home Differential Diagnosis Differential Diagnoses: The differential diagnosis associated with the presentation includes (Gastritis, gastroenteritis, viral illness) Lab Data [facility] Lab Attestation statement: I reviewed the patient's lab results. 07/18/24 05:32 07/18/24 05:32 Labs: Lab Results 07/18/24 Range/Units 05:32 WBC 11.7 H (4.8-10.8) X10*3/uL RBC 4.93 (4.20-5.50) X10*6/uL Hgb 14.3 (12.0-16.0) g/dl Hct 43.2 (37.0-47.0) % MCV 87.6 (80.0-98.0) fL MCH 29.0 (27.0-33.0) pg MCHC 33.1 (31.0-35.0) g/dl RDW 14.4 (11.0-16.0) % Plt Count 370 (160-400) X10*3/uL MPV 8.5 L (9.4-12.3) fL Immature Gran % (Auto) 0.4 (0.0-0.4) % Neut % (Auto) 68.2 (45-73) % Lymph % (Auto) 22.6 (20-40) % Richardson % (Auto) 5.6 (2-11) % Eos % (Auto) 2.3 (0-4) % Baso % (Auto) 0.9 (0-2) % Lymph # (Auto) 2.6 (1.2-4.9) X10*3/uL Richardson # (Auto) 0.7 (0.1-1.2) X10*3/uL Eos # (Auto) 0.3 (0.0-0.4) X10*3/uL Baso # (Auto) 0.1 (0.0-0.2) X10*3/uL Abs Immat Gran (auto) 0.05 H (0.00-0.03) X10*3/uL Absolute Neuts (auto) 8.0 (2.0-8.3) x10*3/uL Absolute Nucleated RBC 0.000 (0.0-0.012) X10*3/uL Nucleated RBC % (auto) 0.0 (0.0-0.2) /100WBC Sodium 141 (135-145) mmol/L Potassium 3.9 (3.3-5.1) mmol/L Chloride 105 (96-108) mmol/L Carbon Dioxide 26 (22-29) mmol/L Anion Gap 14 (12-20) BUN 7 L (9-16) mg/dL Creatinine 0.88 (0.5-1.4) mg/dL Estim Creat Clear Calc 84.7 Estimated GFR > 60 Random Glucose 102 (60-115) mg/dL Calcium 9.8 (8.4-10.2) mg/dL Lipase 25 (8-78) U/L Beta HCG, Quant < 2 mIU/mL Urine Color Yellow Urine Appearance Clear Urine pH 8.5 (5.0-9.0) Ur Specific [place] 1.015 (1.005-1.025) Urine Protein Negative (Neg-Trace) mg/dL Urine Glucose (UA) Negative (Negative) mg/dL Urine Ketones Negative (Negative) mg/dL Urine Blood Negative (Negative) Urine Nitrite Negative (Negative) Ur Leukocyte Esterase Negative (Negative) Urine RBC 0-2 (0-2) /HPF Urine WBC 0-5 (0-5) /HPF Ur Squamous Epith Cells 0-2 (0-2) /HPF Urine Bacteria None Seen (None Seen) Hyaline Casts 0-2 (0-2) /LPF Influenza Type A (PCR) NEGATIVE (Negative) Influenza Type B (PCR) NEGATIVE (Negative) RSV RNA Qual (PCR) POSITIVE A (Negative) SARS-CoV-2 RNA (RT-PCR) NEGATIVE (Negative) Medications Administered Generic Name Dose Route Start Last Admin Trade Name Freq PRN Reason Stop Dose Admin Sodium Chloride 1,000 mls @ 999 mls/hr 07/18/24 05:46 07/18/24 06:05 Ns IVCONT 07/18/24 06:46 999 mls/hr .Q1H1M ONE Administration Discontinued Medications Generic Name Dose Route Start Last Admin Trade Name Nakulq PRN Reason Stop Dose Admin Al Hydroxide/Mg Hydroxide 30 ml 07/18/24 05:44 07/18/24 06:05 Magnesium Hydrox/Alum Hydrox 30 Ml Oral.Susp PO 07/18/24 05:45 30 ml ONCE ONE Administration Famotidine 20 mg 07/18/24 05:44 07/18/24 06:05 Famotidine 20 Mg Tablet PO 07/18/24 05:45 20 mg ONCE ONE Administration Lidocaine HCl 15 ml 07/18/24 05:44 07/18/24 06:05 Lidocaine Hcl Viscous 2 % 15 Ml Solution MUCOUS MEM 07/18/24 05:45 15 ml ONCE ONE Administration Ondansetron HCl 4 mg 07/18/24 05:46 07/18/24 06:05 Ondansetron Hcl 4 Mg/2 Ml Vial IVPUSH 07/18/24 05:47 4 mg ONCE ONE Administration Discharge Plan Discharge Clinical Impression: Hx of viral illness, Nausea & vomiting, RSV infection Patient Disposition: Home, Self-Care Instructions: Acute Nausea and Vomiting (ED), Viral Syndrome (ED) Additional Instructions: Please follow-up with your primary care physician tomorrow. If you have any worsening or new symptoms, please return to the emergency room or call 911 Prescriptions: New ondansetron 4 mg tablet,disintegrating 4 mg PO Q6H PRN (Reason: nausea and vomiting) Qty: 14 0RF No Action PNV cmb#95-ferrous fumarate-FA [] 28 mg iron- 800 mcg tablet 1 tab PO DAILY Print Language: Turkish
[2024-07-18 05:46] LABS: Basophils Absolute Auto 0.1 X10*3/uL (0.0-0.2); Basophils Percent Auto 0.9 % (0-2); Eosinophils Absolute Auto 0.3 X10*3/uL (0.0-0.4); Eosinophils Percent Auto 2.3 % (0-4); Hematocrit 43.2 % (37.0-47.0); Hemoglobin 14.3 g/dl (12.0-16.0); Imm Gran Abs Auto 0.05 X10*3/uL (0.00-0.03); Imm Gran Pct Auto 0.4 % (0.0-0.4); Lymphocytes Absolute Auto 2.6 X10*3/uL (1.2-4.9); Lymphocytes Percent Auto 22.6 % (20-40); Mean Corpuscular HGB Conc 33.1 g/dl (31.0-35.0); Mean Corpuscular Volume 87.6 fL (80.0-98.0); Mean Platelet Volume 8.5 fL (9.4-12.3); Monocytes Absolute Auto 0.7 X10*3/uL (0.1-1.2); Monocytes Percent Auto 5.6 % (2-11); Neutrophils Percent Auto 68.2 % (45-73); Platelet Count 370 X10*3/uL (160-400); Red Blood Count 4.93 X10*6/uL (4.20-5.50); Red Cell Distribution Width 14.4 % (11.0-16.0); White Blood Count 11.7 X10*3/uL (4.8-10.8)
[2024-07-18 05:47] LABS: Appearance Urine Clear; Color Urine Yellow; Glucose Urine UA Negative (Negative); Leukocyte Esterase Urine Negative (Negative); Nitrite Urine Negative (Negative); PH 8.5 (5.0-9.0); Specific Gravity - Urine 1.015 (1.005-1.025); Urine Blood Negative (Negative); Urine Ketones Negative (Negative); Urine Protein Negative (Neg-Trace)
[2024-07-18 05:50] LABS: Bacteria Urine None Seen (None Seen); Hyaline Casts Urine 0-2 /LPF (0-2); RBC Urine 0-2 /HPF (0-2); Squamous Epithelial Cell Urine 0-2 /HPF (0-2); WBC Urine 0-5 /HPF (0-5)
[2024-07-18 05:59] LABS: Anion Gap 14 (12-20); Blood Urea Nitrogen 7 mg/dL (9-16); Calcium 9.8 mg/dL (8.4-10.2); Carbon Dioxide 26 mmol/L (22-29); Chloride 105 mmol/L (96-108); Creatinine Clr Calc Pharmacy 84.7; Estimated Glomerular Filt Rate > 60; Glucose Random 102 mg/dL (60-115); Lipase 25 U/L (8-78); Potassium 3.9 mmol/L (3.3-5.1); Sodium 141 mmol/L (135-145)
[2024-07-18 06:01] LABS: HCG Quantitative < 2 mIU/mL
[2024-07-18] MEDS: ondansetron HCL 4 MG/2 ML VIAL IVPUSH (06:05)
[2024-07-18] MEDS: Magnesium Hydrox/Alum Hydrox 30 ML ORAL.SUSP PO (06:05)
[2024-07-18] MEDS: Lidocaine HCl Viscous 2 % 15 ML SOLUTION MUCOUS MEM (06:05)
[2024-07-18] MEDS: Famotidine 20 MG TABLET PO (06:05)
[2024-07-18] MEDS: 0.9 % Sodium Chloride 1,000 ML 999 ML IVCONT (06:05)
[2024-07-18 06:12] VITALS: BP 140/84; PULSE 72; RESP 17; O2SAT 97
[2024-07-18 06:16] LABS: Influenza A PCR NEGATIVE (Negative); Influenza B PCR NEGATIVE (Negative); Resp Syncy Virus RNA Qual PCR POSITIVE (Negative); SARS COV2 PCR INHOUSE NEGATIVE (Negative)
[2024-07-18 07:57] VITALS: BP 140/84; PULSE 72; RESP 18; TEMP 36.7; O2SAT 97
== END 2024-07-18 07:57 | disposition home or self-care (01) ==
PROVIDERS: Emergency Provider Emergency Medicine; PCP Internal Medicine
DX: B34.9 Viral infection, unspecified (principal); R11.2 Nausea with vomiting, unspecified; B97.4 Respiratory syncytial virus as the cause of diseases classified elsewhere; Z03.818 Encounter for observation for suspected exposure to other biological agents ruled out
CPT/HCPCS: 0241U; 80048; 81001; 83690; 84702; 85025; 93005; 96361; 96374; 99284; 99285; J2405

== ENCOUNTER → 2024-07-18 05:45 | Outpatient (BNV) | payer OTHER, SELFPAY | PROVIDERS: Emergency Provider Emergency Medicine; PCP Internal Medicine; Visit Provider Internal Medicine | DX: R94.31 Abnormal electrocardiogram [ECG] [EKG] (principal) | CPT/HCPCS: 93010 ==